=== PATIENT | male | born 1980 | race Caucasian/White ===

== ENCOUNTER → 2018-05-04 | Outpatient (CLI) | payer MEDICAID | END | disposition home or self-care (01) | LOC: CT 08:54 | DX: S52.042D Displaced fracture of coronoid process of left ulna, subsequent encounter for closed fracture with routine healing (principal); X58.XXXD Exposure to other specified factors, subsequent encounter ==

== ENCOUNTER 2022-01-10 20:47 | Emergency (ER) | payer BC ==
[2022-01-10] MEDS ORDERED: NAPROSYN500 MG PO (22:08)
== END 2022-01-10 22:48 | disposition home or self-care (01) ==
LOC: ED 20:47
DX: S20.211A Contusion of right front wall of thorax, initial encounter (principal); W17.89XA Other fall from one level to another, initial encounter; Y93.89 Activity, other specified; Y92.89 Other specified places as the place of occurrence of the external cause; Y99.8 Other external cause status

== ENCOUNTER → 2022-01-29 | Outpatient (CLI) | payer BC ==
[~2022-01-29] MED LIST: NAPROSYN500 MG PO
== END | disposition home or self-care (01) ==
LOC: RAD 16:25
PROVIDERS: ATTEND Physician Assistant
DX: S22.32XA Fracture of one rib, left side, initial encounter for closed fracture (principal); X58.XXXA Exposure to other specified factors, initial encounter; Y93.89 Activity, other specified; Y92.89 Other specified places as the place of occurrence of the external cause; Y99.8 Other external cause status